=== PATIENT | male | born 1945 | race African-American/Black ===

== ENCOUNTER 2023-03-02 13:46 | Emergency (ER) | payer MEDICARE, OTHER ==
[~2023-03-02] VITALS: Ht 167.6 cm; Wt 71.0 kg
[2023-03-02 15:13] VITALS: BP 138/66
[2023-03-02] MEDS ORDERED: ACET-1079 PO (16:55)
[2023-03-02] MEDS ORDERED: CEPH500T PO (17:03)
== END 2023-03-02 17:03 | disposition home or self-care (01) ==
LOC: ER 13:46
DX: S01.01XA Laceration without foreign body of scalp, initial encounter (principal); X58.XXXA Exposure to other specified factors, initial encounter; Y93.89 Activity, other specified; Y92.89 Other specified places as the place of occurrence of the external cause; Y99.8 Other external cause status
CPT/HCPCS: 12001